=== PATIENT | female | born 1940 | race Caucasian/White ===

== ENCOUNTER 2018-07-15 17:34 | Inpatient (IN) ==
[2018-07-15] MEDS ORDERED: ZOFRAN IV ONE (18:50)
[2018-07-15] MEDS ORDERED: DILAUDID IV ONE (18:51)
[2018-07-15] MEDS ORDERED: NS 1,000 ML IV ONE (18:51)
[2018-07-15 19:12] LABS: BASO# 0.01 X1000 (0.0-0.2); BASO% 0.1 % (0.0-0.8); EOS% 1.6 % (0.0-10.0); HEMOGLOBIN 9.1 g/dL (12.0-16.0); IMM GRAN# 0.05 X1000 (0.0-0.04); IMM GRAN% 0.4 % (0.0-0.5); LYMPH# 0.93 X1000 (1.2-3.4); LYMPH% 7.3 % (20.5-51.1); MCH 28.9 PG (27-31); MCHC 32.5 g/dL (33-37); MCV 88.9 FL (81-99); MONO# 0.89 X1000 (0.11-0.59); MPV 11.8 FL (7.4-10.4); NEUT# 10.66 X1000 (1.4-6.5); NEUT% 83.6 % (42.2-75.2); PLT 195 X1000 (130-400); RBC 3.15 XMIL (4.2-5.4); RDW 12.6 % (11.5-14.5); WBC 12.74 X1000 (4.8-10.8)
[2018-07-15 19:36] LABS: AGAP 11; ALB/GLOB RATIO 1.6; ALBUMIN 3.6 g/dL (3.5-5.0); ALKALINE PHOSPHATASE 168 U/L (32-104); BUN 15 mg/dL (8-22); CALCIUM 9.1 mg/dL (8.8-10.2); CHLORIDE 93 mmol/L (98-107); COSMO 261; CREATININE 0.7 mg/dL (0.5-0.9); ESTIMATED GFR > 60; GLUCOSE 94 mg/dL (70-104); GOT 137 U/L (10-30); GPT 113 U/L (10-36); POTASSIUM 4.1 mmol/L (3.5-5.1); SODIUM 130 mmol/L (136-145); TCO2 26 mmol/L (25-35); TOTAL BILIRUBIN 0.78 mg/dL (0.20-1.00); TOTAL PROTEIN 5.9 g/dL (6.3-8.3)
--- NOTE | 2018-07-15 20:31 | Diag Imaging Result Doc PS360 ---
CT ANGIOGRM PULMONARY ARTERIES - 07/15/2018 INDICATION: recent ortho surgery, now sob and tachy, r/o PE TECHNIQUE: Axial CT images were obtained after administering intravenous contrast. Coronal MIP images were generated. COMPARISON: None FINDINGS: There are a couple of segmental pulmonary emboli in the right middle and lower lobe arteries. Heart and great vessels are normal. No adenopathy. There is a rather large hiatal hernia. Upper abdominal images are unremarkable. There are trace bilateral pleural effusions. There is an azygos lobe. There is some hazy nonspecific infiltrate or edema mainly throughout the left lung. There are moderate degenerative changes of the spine. No acute or suspicious bony lesion. IMPRESSION: 1. A few scattered segmental pulmonary emboli on the right side. 2. Hazy infiltrate or edema throughout the left lung. 3. Trace bilateral pleural effusions. 4. This report was discussed with Dr. Lock on 07/15/2018 at 8:25 PM and was readback. This exam was performed using automated exposure control, adjustment of mA or kV according to patient size, and/or use of iterative reconstruction technique Electronically signed by Ranjeet Cabrales 07/15/2018 8:28 PM
--- NOTE | 2018-07-15 20:33 | Diag Imaging Result Doc PS360 ---
CHEST-1 VIEW - 07/15/2018 INDICATION: sob COMPARISON: 04/29/2017 FINDINGS: There is some minimal infiltrate throughout the left lung. The right lung is fairly clear. The trace pleural effusions are not visible on this frontal x-ray. IMPRESSION: Minimal diffuse infiltrate throughout the left lung, nonspecific. May represent edema or pneumonia. Electronically signed by Ranjeet Cabrales 07/15/2018 8:31 PM
[2018-07-15 21:10] LABS: URINE SOURCE CLEAN CATCH
[2018-07-15 21:21] LABS: BILIRUBIN URINE NEGATIVE (NEGATIVE); BLOOD URINE TRACE (NEGATIVE); COLOR YELLOW; GLUCOSE URINE NEGATIVE (NEGATIVE); KETONE URINE NEGATIVE (NEGATIVE); LEUKOCYTES URINE NEGATIVE (NEGATIVE); NITRITE URINE NEGATIVE (NEGATIVE); PH URINE 6.5; PROTEIN URINE NEGATIVE (NEGATIVE); SP GRAVITY URINE 1.018; TURBIDITY URINE CLEAR (CLEAR); UROBILINOGEN URINE NORMAL (NORMAL)
[2018-07-15 21:22] LABS: UR EPITHELIAL CELLS <10 /HPF (<10); URINE BACTERIA NEGATIVE /HPF; URINE RBC <10 /HPF (<10); URINE WBC <10 /HPF (<10)
[2018-07-15] MEDS ORDERED: ZOFRAN IV PRN (22:16)
[2018-07-15] MEDS: LOVENOX SUBQ SCH (22:16)
[2018-07-15] MEDS ORDERED: VANCOMYCIN IV PER PHARMACY MISC SCH (22:16)
[2018-07-15] MEDS ORDERED: VANCOMYCIN 1,400 MG in NS 250 ML IV ONE (23:00)
--- NOTE | 2018-07-15 23:19 | HISTORY AND PHYSICAL ---
PRIMARY CARE PHYSICIAN: Robert Terrell MD CHIEF COMPLAINT: Cough, wheezing, shortness of breath. HISTORY OF PRESENT ILLNESS: This is a 77-year-old female with past medical history of fibromyalgia and osteoarthritis. She underwent a recent right knee replacement last Thursday, 07/12, and she was discharged overnight. Since then, she reports that pain in the right knee was getting worse. Also she reports some cough with brown sputum, wheezing and mild shortness of breath that started right after she was discharged. She reports also subjective fever at home. No chest pain. Upon ER evaluation here, we found elevation of white cell count, with elevated liver function tests. A CT angiogram of the chest showed a few scattered segmental pulmonary emboli in the right side, and also some infiltrates suspected for pneumonia, so the patient is going to be admitted for further evaluation and treatment. PAST MEDICAL HISTORY: 1. Fibromyalgia. 2. Osteoarthritis. PAST SURGICAL HISTORY: 1. Lower colon resection performed by Dr. Matt Kessler in 05/2018 for colon stricture. 2. Recent right knee replacement, performed by Dr. Bhandari on 07/12/2018. 3. Cholecystectomy. 4. Hysterectomy. 5. Cataract removed. 6. Tonsillectomy. ALLERGIES: No known drug allergies. SOCIAL HISTORY: She has never smoked. She does not drink alcohol or use illicit drugs. She lives with her . FAMILY HISTORY: Noncontributory. REVIEW OF SYSTEMS: Eleven systems were reviewed, and all symptoms are related to H and P. PHYSICAL EXAMINATION: VITAL SIGNS: Temperature 98.6 degrees, heart rate 121, respiratory rate 22, blood pressure 127/84, O2 saturation 96% on 2 L nasal cannula. GENERAL: This is a 77-year-old female lying in bed, in no acute distress. HEENT: Head is normocephalic, atraumatic. Pupils equal, round and reactive to light and accommodation. Anicteric sclerae. Normal conjunctivae. NECK: No JVD noted. No carotid bruits. No lymphadenopathy. No thyromegaly. CARDIOVASCULAR: S1, S2 heard. Tachycardic. No murmurs, gallops or rubs. Regular rhythm. RESPIRATORY: Some coarse breath sounds and expiratory wheezing noted in both pulmonary bases. Patient not using any accessory muscles or having work of breathing. ABDOMEN: Soft, nontender to palpation. Bowel sounds present. No organomegaly. EXTREMITIES: Right knee with mild swelling and also recent surgical scar. There is also some red discoloration on the right lower extremity as well. Peripheral pulses present in both legs. NEUROLOGIC: The patient is alert and oriented x3. Moves all 4 extremities. LABORATORY DATA: White cell count 12.74, hemoglobin 9.1, hematocrit 28.0, platelets 195,000. Sodium 130, AST 137, ALT 113, alkaline phosphatase 168. DIAGNOSTIC DATA: Pulmonary arteriogram showed a few scattered segmental pulmonary emboli on the right side; hazy infiltrate or edema throughout the left lung; trace bilateral pleural effusion. ASSESSMENT: 1. Pulmonary embolism. 2. Healthcare-associated pneumonia. 3. Recent right knee replacement. 4. Transaminitis. PLAN: 1. For this pulmonary embolism, we will start Lovenox 1 mg/kg every 12 hours. We are going to monitor this patient closely. The patient is tachycardic. There are some hazy infiltrates in the CT of the chest that may indicate either edema or pneumonia. Considering her symptoms of cough, fever and wheezing that she has not had on admission on 07/12 for her surgery, I prefer to go ahead and treat her like a healthcare-associated pneumonia. We will start vancomycin and cefepime, and we will monitor white cell count that is mildly elevated. 2. For this recent right knee replacement, I am aware of the risk of bleeding but I prefer to go ahead and treat this pulmonary embolism with anticoagulation. We will consult Orthopedics inbound sales consultant we will follow recommendations. 3. For this transaminitis, it is apparently new for her. I am going to trend hepatic panel. We will check hepatitis panel. We will do an abdominal ultrasound and will go from there. 4. For fibromyalgia we will continue with pain medications, although the patient does not report any pain at this time. Further recommendations to follow according to clinical situation of the patient. cc: Phoenix Molina MD
[2018-07-16] MEDS: NS 1,000 ML IV SCH ×2 (01:00→11:18)
[2018-07-16] MEDS: MAXIPIME 1 GM in NS 50 ML IV SCH ×3 (01:50→20:23)
[2018-07-16] MEDS: OXY IR PO PRN ×5 (02:08→23:04)
[2018-07-16] MEDS: DESYREL PO SCH ×2 (02:33→20:21)
[2018-07-16] MEDS: DUONEB (A & A) INH PRN ×3 (04:03→11:45)
[2018-07-16] MEDS: PRILOSEC PO SCH (07:00)
--- NOTE | 2018-07-16 07:09 | EKG Report ---
Test Performed on : 07/15/2018 5:51:00 PM Test Reason : TACHYCARDIA Blood Pressure : / mmHG Vent. Rate : 159 BPM Atrial Rate : 318 BPM P-R Int : 000 ms QRS Dur : 066 ms QT Int : 214 ms P-R-T Axes : 253 -04 151 degrees QTc Int : 348 ms Atrial flutter. with 2:[address]. [address] abnormality, possible inferolateral subendocardial injury Abnormal ECG When compared with ECG of 07-JUL-2018 08:07, Atrial flutter. has replaced Sinus rhythm. Vent. rate has increased BY [address] now depressed in Inferior leads ST now depressed in Anterolateral leads T wave amplitude has decreased in Inferior leads Inverted T waves have replaced nonspecific T wave abnormality in Lateral leads Unconfirmed Result
[2018-07-16 07:26] LABS: ALB/GLOB RATIO 1.3; DIRECT BILIRUBIN 0.2 mg/dL (0.00-0.20); TOTAL BILIRUBIN 0.68 mg/dL (0.20-1.00); TOTAL PROTEIN 5.4 g/dL (6.3-8.3)
[2018-07-16 07:41] LABS: BASO# 0.01 X1000 (0.0-0.2); BASO% 0.1 % (0.0-0.8); EOS# 0.21 X1000 (0.0-0.7); EOS% 2.1 % (0.0-10.0); HEMATOCRIT 23.4 % (37.0-47.0); HEMOGLOBIN 7.4 g/dL (12.0-16.0); IMM GRAN# 0.02 X1000 (0.0-0.04); IMM GRAN% 0.2 % (0.0-0.5); LYMPH# 0.93 X1000 (1.2-3.4); LYMPH% 9.2 % (20.5-51.1); MCH 28.9 PG (27-31); MCHC 31.6 g/dL (33-37); MCV 91.4 FL (81-99); MONO# 0.82 X1000 (0.11-0.59); MONO% 8.1 % (1.7-9.3); MPV 11.9 FL (7.4-10.4); NEUT# 8.14 X1000 (1.4-6.5); NEUT% 80.3 % (42.2-75.2); PLT 180 X1000 (130-400); RBC 2.56 XMIL (4.2-5.4); RDW 12.9 % (11.5-14.5); WBC 10.13 X1000 (4.8-10.8)
[2018-07-16 07:56] LABS: AGAP 8; BUN 11 mg/dL (8-22); CALCIUM 8.3 mg/dL (8.8-10.2); CHLORIDE 100 mmol/L (98-107); COSMO 267; CREATININE 0.7 mg/dL (0.5-0.9); ESTIMATED GFR > 60; GLUCOSE 94 mg/dL (70-104); SODIUM 134 mmol/L (136-145); TCO2 26 mmol/L (25-35)
--- NOTE | 2018-07-16 07:59 | Diag Imaging Result Doc PS360 ---
EXAM: US ABDOMEN-COMPLETE - 07/16/2018 HISTORY: transaminitis TECHNIQUE: Ultrasound abdomen COMPARISON: None. FINDINGS: The gallbladder surgically absent. The common bile duct is distended at 1.2 cm, which can be seen with postcholecystectomy state. There is no stone identified within the visualized portion of the common bile, although part of the duct is obscured by bowel gas artifacts. Visualized portions of the pancreas are unremarkable. There are artifacts over the liver which mildly limit detail. There is no discrete liver abnormality identified. Doppler image shows hepatopedal flow in the portal vein. The spleen is unremarkable. There is no ascites seen. There are no abnormalities of the bilateral kidneys identified. Abdominal aorta and IVC appear normal caliber. IMPRESSION: Status post cholecystectomy. Distended common bile duct at 1.2 cm, which can be seen with postcholecystectomy state. No other visible abnormality. Electronically signed by Arya Beach 07/16/2018 7:57 AM
[2018-07-16] MEDS: LOVENOX SUBQ SCH ×3 (10:16→22:04)
[2018-07-16 17:54] LABS: HEMATOCRIT 23.9 % (37.0-47.0); HEMOGLOBIN 7.6 g/dL (12.0-16.0)
--- NOTE | 2018-07-16 19:16 | CONSULTATION ---
DATE OF CONSULTATION: 07/16/2018 REASON FOR CONSULTATION: Recent right total knee replacement. HISTORY OF PRESENT ILLNESS: This is a 77-year-old female with a past medical history of fibromyalgia and osteoarthritis. She recently underwent a right total knee arthroplasty on July [address] Bhandari. She did well through the evening and was discharged the following day. Apparently the last couple of days the pain started increasing. She also complained of some shortness of breath. She felt like she was starting to get a fever. She denied any chest pain. Apparently, she decided she needed to go to the ER for further workup. She came to [facility] Emergency room where they found an elevated white count. They did do a CT angiogram of the chest on arrival and found some scattered pulmonary emboli. There was also some evidence of possible pneumonia, so she was admitted to the hospital for treatment of the pulmonary emboli as well as pneumonia. PAST MEDICAL HISTORY: 1. Fibromyalgia. 2. Osteoarthritis. PAST SURGICAL HISTORY: 1. Recent right knee replacement by Dr. Bhandari on 07/12/2018. 2. Lower colon resection in May. 3. Cholecystectomy. 4. Hysterectomy. 5. Cataracts. 6. Tonsillectomy. ALLERGIES: No known drug allergies. SOCIAL HISTORY: She denies tobacco, alcohol, or illicit drug use. She lives with her . FAMILY HISTORY: Noncontributory. REVIEW OF SYSTEMS: A 10 point review of systems was conducted and negative except what is mentioned in HPI. PHYSICAL EXAMINATION: Current Vital Signs: Temperature is 99.1 degrees, pulse 113, respirations 18, blood pressure 108/96, she is 96% on room air. General: This is a frail-appearing 77-year- old female with some shortness of breath. HEENT: Head is atraumatic, normocephalic. Pupils are equal, round, reactive to light. CV: She is a little bit tachycardic. Regular rhythm. Respirations: Her breathing is a little bit labored at the present. Abdomen: Appears nondistended. Extremities: She does have some tenderness to palpation to the right knee. There is a little swelling but no fluctuance. Her surgical incision looks great. There is no erythema or drainage. It is well approximated. She does have some discoloration and ecchymosis to the right lower extremity. She does have a 2+ pedal pulse that is noted. She has good sensation to the lower extremity. She does have pain with passive range of motion. Neurologic: She is alert and oriented x3 with no focal deficits. DIAGNOSTIC DATA: A CT angiogram did show few scattered segmental pulmonary emboli on the right side. There was also some infiltrates on the left side. There is a venous Doppler of the lower extremities that is pending. ASSESSMENT: Pulmonary embolism status post right total knee arthroplasty. PLAN: The medical team has started her on Lovenox 1 mcg per kg every 12 hours. They are also going to treat her for her possible hospital-acquired pneumonia. As far as the knee she can continue to be weightbearing as tolerated. We will have physical therapy come work with her. We will keep an eye on the knee just to make sure she does not develop a hematoma while she is on the anticoagulation for her pulmonary embolus. The knee looks good today. She does have some lower extremity swelling. There is a venous Doppler pending. Will just keep an eye on the incision and the knee and continue to rehab her as tolerated with all of her current medical conditions. We will continue to follow her while she is in the hospital. Dictated by HONEY Reyes for Jacobo Bhandari MD cc: HONEY Reyes MD
--- NOTE | 2018-07-16 22:21 | ECHO REPORT ---
ORDER DATE: 07/16/2018 MEASUREMENTS: Septal thickness 0.9. Left ventricular internal diameter in diastole 4.3. Posterior wall thickness 0.9. Left ventricular internal diameter in systole 2.5. Aortic root 2.9. Left atrium 3.5. SUMMARY: 1. Technically difficult study due to limited acoustic window quality. 2. Aortic valve is trileaflet and opens normally on 2-dimensional images. Peak gradient across aortic valve is 10-15 mmHg. Mitral and tricuspid valves are without evidence of structural abnormality while pulmonic valve is not well demonstrated. There is trace mitral regurgitation and mild tricuspid regurgitation. Estimated systolic PA pressure by Doppler is 55 mmHg, suggesting moderate pulmonary hypertension. Aortic root is normal in size. 3. Normal left ventricular dimensions demonstrated. Estimated left ejection fraction appears to be at least 70%. No regional wall motion abnormalities evident. Left atrium, right atrium, right ventricle are normal size with grossly preserved right ventricular systolic function. 4. No pericardial effusion. 5. Appearance of inferior vena cava suggests normal central venous pressure. cc: MD Phoenix Castillo MD
[2018-07-17] MEDS ORDERED: VANCOMYCIN IV PER PHARMACY MISC SCH
[2018-07-17] MEDS: MAXIPIME 1 GM in NS 50 ML IV SCH ×3 (00:51→22:21)
[2018-07-17] MEDS: OXY IR PO PRN ×7 (01:45→22:20)
[2018-07-17] MEDS: NS 1,000 ML IV SCH ×2 (01:46→12:45)
[2018-07-17] MEDS: PRILOSEC PO SCH (06:44)
[2018-07-17 07:50] LABS: ALB/GLOB RATIO 1.1; ALBUMIN 2.7 g/dL (3.5-5.0); DIRECT BILIRUBIN 0.2 mg/dL (0.00-0.20); TOTAL BILIRUBIN 0.63 mg/dL (0.20-1.00); TOTAL PROTEIN 5.1 g/dL (6.3-8.3)
[2018-07-17] MEDS: DUONEB (A & A) INH PRN (08:45)
[2018-07-17 09:07] LABS: BASO# 0.01 X1000 (0.0-0.2); BASO% 0.1 % (0.0-0.8); EOS# 0.19 X1000 (0.0-0.7); EOS% 2.8 % (0.0-10.0); HEMATOCRIT 21.9 % (37.0-47.0); HEMOGLOBIN 6.9 g/dL (12.0-16.0); IMM GRAN# 0.03 X1000 (0.0-0.04); IMM GRAN% 0.4 % (0.0-0.5); LYMPH# 1.05 X1000 (1.2-3.4); LYMPH% 15.6 % (20.5-51.1); MCH 29.1 PG (27-31); MCHC 31.5 g/dL (33-37); MCV 92.4 FL (81-99); MONO# 0.65 X1000 (0.11-0.59); MONO% 9.7 % (1.7-9.3); MPV 11.3 FL (7.4-10.4); NEUT% 71.4 % (42.2-75.2); PLT 171 X1000 (130-400); RBC 2.37 XMIL (4.2-5.4); RDW 13.3 % (11.5-14.5); WBC 6.73 X1000 (4.8-10.8)
[2018-07-17 09:19] LABS: AGAP 9; BUN 7 mg/dL (8-22); CALCIUM 7.9 mg/dL (8.8-10.2); CHLORIDE 103 mmol/L (98-107); COSMO 277; CREATININE 0.6 mg/dL (0.5-0.9); ESTIMATED GFR > 60; GLUCOSE 86 mg/dL (70-104); POTASSIUM 3.6 mmol/L (3.5-5.1); SODIUM 140 mmol/L (136-145); TCO2 28 mmol/L (25-35)
[2018-07-17] MEDS: LOVENOX SUBQ SCH (09:34)
[2018-07-17] MEDS: LYRICA PO SCH ×2 (09:41→22:20)
[2018-07-17] MEDS: COLACE PO SCH ×2 (09:41→22:20)
--- NOTE | 2018-07-17 10:20 | PROGRESS NOTE ---
DATE: 07/17/2018 SUBJECTIVE: Neyda Aparicio is a 77-year-old female who is postoperative day 5 of a total knee arthroplasty, who was readmitted after developing a pulmonary embolus. She has no complaints today. OBJECTIVE: Her wound is clean, dry, intact. She has no calf tenderness. Her leg is neurovascularly intact. She has good range of motion of her knee. Her hemoglobin is 6.9. Her hematocrit is 21.9. ASSESSMENT: Stable right total knee arthroplasty with pulmonary embolus and acute blood loss anemia. PLAN: She is receiving transfusion by the hospitalist. I agree with this plan. She is to continue working with physical therapy. cc: Jacobo Bhandari MD
[2018-07-17] MEDS ORDERED: VANCOMYCIN 1,100 MG in NS 250 ML IV SCH (11:00)
[2018-07-17 12:19] LABS: HEPATITIS PROFILE ACUTE SEE COMMENTS
--- NOTE | 2018-07-17 13:33 | PROGRESS NOTE ---
DATE: 07/17/2018 SUBJECTIVE: No acute events overnight. Since her right lower extremity was edematous, a little bit cold and I could not find the pulse on my physical exam, I ordered an arterial ultrasound that basically is normal. I will stop the Lovenox twice a day and I will put this patient on Eliquis. Since this patient has a pulmonary embolism, I will start Eliquis 10 mg twice a day for 7 days and then I will switch it to 5 mg twice a day. OBJECTIVE: Vital Signs: Temperature 98.8 degrees, pulse 84, respiratory rate 20, blood pressure 134/47, oxygen saturation 98 on room air. HEENT: Head normocephalic, no trauma. PERRLA. Neck: Supple. No JVD. No masses. Central trachea. Chest: Clear to auscultation. Some crepitus, mostly on the right side. Abdomen: Soft, nontender, nondistended. No hepatosplenomegaly. Extremities: Right lower extremity edema 2+ with bluish coloration due to previous knee surgery. It is a bit cold compared with the left lower extremity, but she is able to move her toes without problem, Her right knee also has a wound that looks clean, dry, and intact. Neurological examination: The patient is alert and oriented x3. No focal deficits. LABORATORY: WBC 6.7, hemoglobin 6.9, hematocrit 21.9, platelets 171. Sodium 140, potassium 3.6, chloride 103, bicarbonate 28. BUN 7, creatinine 0.6, glucose 86, calcium 7.9. AST 35, ALT 53, alkaline phosphatase 125, albumin 2.7. ASSESSMENT AND PLAN: 1. Pulmonary embolism, right side. This patient was placed on Lovenox twice a day 1 mg/kg, and now I have switched to Eliquis twice a day starting this night. Echocardiogram did not show any acute problem. We will continue with the same management. 2. Possible healthcare-associated pneumonia. This patient has been started on antibiotics. We have a positive blood culture 1/2 that showed gram-positive cocci, so we will continue with the vancomycin. 3. Gram-positive culture that showed 1/2 gram-positive cocci. Continue with vancomycin. No fever, no chills. 4. Recent right knee replacement. Orthopedic Surgery Department already evaluated this patient. We will monitor. 5. Transaminitis. This is getting better. Ultrasound did not show any acute abnormality. I think we will just monitor pending hepatitis panel. 6. Fibromyalgia. Continue with the same pain medication. cc: August Baptiste MD
[2018-07-17] MEDS: DESYREL PO SCH (22:20)
[2018-07-17] MEDS: ELIQUIS PO SCH (22:20)
[2018-07-17] MEDS: MIRALAX PO SCH (22:21)
[2018-07-18] MEDS: PRILOSEC PO SCH (06:42)
[2018-07-18] MEDS: NS 1,000 ML IV SCH ×2 (06:44→21:15)
[2018-07-18 06:52] LABS: BASO# 0.01 X1000 (0.0-0.2); BASO% 0.2 % (0.0-0.8); EOS# 0.28 X1000 (0.0-0.7); HEMATOCRIT 28.8 % (37.0-47.0); HEMOGLOBIN 9.1 g/dL (12.0-16.0); IMM GRAN# 0.08 X1000 (0.0-0.04); IMM GRAN% 1.4 % (0.0-0.5); LYMPH# 1.23 X1000 (1.2-3.4); LYMPH% 21.9 % (20.5-51.1); MCH 29.4 PG (27-31); MCHC 31.6 g/dL (33-37); MCV 92.9 FL (81-99); MONO# 0.66 X1000 (0.11-0.59); MONO% 11.7 % (1.7-9.3); MPV 10.5 FL (7.4-10.4); NEUT# 3.36 X1000 (1.4-6.5); NEUT% 59.8 % (42.2-75.2); PLT 215 X1000 (130-400); RDW 13.4 % (11.5-14.5); WBC 5.62 X1000 (4.8-10.8)
[2018-07-18 06:59] LABS: AGAP 7; BUN 4 mg/dL (8-22); CALCIUM 8.3 mg/dL (8.8-10.2); CHLORIDE 109 mmol/L (98-107); COSMO 282; CREATININE 0.7 mg/dL (0.5-0.9); ESTIMATED GFR > 60; GLUCOSE 92 mg/dL (70-104); POTASSIUM 3.6 mmol/L (3.5-5.1); SODIUM 143 mmol/L (136-145); TCO2 27 mmol/L (25-35)
[2018-07-18 07:53] LABS: ALB/GLOB RATIO 1.4; ALBUMIN 2.8 g/dL (3.5-5.0); DIRECT BILIRUBIN 0.2 mg/dL (0.00-0.20); TOTAL BILIRUBIN 0.71 mg/dL (0.20-1.00); TOTAL PROTEIN 4.8 g/dL (6.3-8.3)
--- NOTE | 2018-07-18 10:33 | PROGRESS NOTE ---
DATE: 07/18/2018 SUBJECTIVE: No acute events overnight. OBJECTIVE: Vital Signs: Temperature 97.7 degrees, pulse 87, respiratory rate 20, blood pressure 168/76, oxygen saturation 100% on room air. HEENT: Head normocephalic, atraumatic. PERRLA. Neck: Supple. No JVD. No masses. Central trachea. Chest: Clear to auscultation. Some crepitus, mostly at the right base. Abdomen: Soft, nontender, nondistended. No hepatosplenomegaly. Extremities: Right lower extremity edema 2+ with bluish coloration due to previous knee surgery, a little bit cold compared with the left lower extremity, but she is not complaining of pain and she is moving her toes without any kind of problem. Her right knee also has a wound that looks clean, dry, and intact. Neurological: The patient is alert and oriented x3. No focal deficits. LABORATORY: WBC 5.6, hemoglobin 9.1, hematocrit 28.8, platelets 215,000. Sodium 143, potassium 3.6, chloride 109, bicarbonate 27, BUN 4, creatinine 0.7, glucose 92, calcium 8.3, AST 25, ALT 41, alkaline phosphatase 130, albumin 2.8. ASSESSMENT AND PLAN: 1. Pulmonary embolism, right side, this patient has been placed initially on Lovenox twice a day, but now she is on Eliquis. Echocardiogram did not show any acute problem. We will continue with the same management. Hopefully, this patient can be discharged in the next 24 to 48 hours. 2. Possible healthcare-associated pneumonia, continue with antibiotics. 3. Gram-positive culture that showed 1 out of 2 coagulase-negative Staphylococcus, likely this is a contaminant. 4. Recent right knee replacement, Orthopedic Surgery is following this patient. I have restarted this patient on physical therapy. 5. Transaminitis. This is getting better. Ultrasound did not show any abnormality. We will monitor. 6. Fibromyalgia, continue with same treatment. cc: August Baptiste MD
[2018-07-18] MEDS: LYRICA PO SCH ×2 (10:42→21:15)
[2018-07-18] MEDS: MAXIPIME 1 GM in NS 50 ML IV SCH ×2 (10:42→21:15)
[2018-07-18] MEDS: ELIQUIS PO SCH ×2 (10:42→21:15)
[2018-07-18] MEDS: COLACE PO SCH ×2 (10:42→21:15)
[2018-07-18] MEDS: OXY IR PO PRN ×4 (10:55→21:15)
--- NOTE | 2018-07-18 11:28 | PROGRESS NOTE ---
DATE: 07/18/2018 SUBJECTIVE: Neyda Aparicio is a 77-year-old female with a right total knee with a PE. She has no complaints. OBJECTIVE: She is a well-developed, well-nourished female. She is alert, oriented, and cooperative with the exam. Her wound is clean, dry, intact. There is no sign of infection. There is no sign of hematoma. ASSESSMENT: Stable right total knee arthroplasty. PLAN: She is going to continue working with physical therapy. She will likely go home versus rehab the first part of the week. cc: Jacobo Bhandari MD
[2018-07-18] MEDS: DESYREL PO SCH (21:15)
[2018-07-18] MEDS: MIRALAX PO SCH (21:17)
[2018-07-19] MEDS: OXY IR PO PRN ×6 (00:28→21:32)
[2018-07-19 05:43] LABS: HEMOGLOBIN 8.7 g/dL (12.0-16.0)
[2018-07-19 06:08] LABS: AGAP 8; ALB/GLOB RATIO 1.1; ALBUMIN 2.7 g/dL (3.5-5.0); ALKALINE PHOSPHATASE 104 U/L (32-104); BUN 4 mg/dL (8-22); CALCIUM 8.1 mg/dL (8.8-10.2); CHLORIDE 106 mmol/L (98-107); COSMO 280; CREATININE 0.8 mg/dL (0.5-0.9); ESTIMATED GFR > 60; GLUCOSE 92 mg/dL (70-104); GOT 18 U/L (10-30); GPT 30 U/L (10-36); POTASSIUM 3.8 mmol/L (3.5-5.1); SODIUM 142 mmol/L (136-145); TCO2 28 mmol/L (25-35); TOTAL BILIRUBIN 0.65 mg/dL (0.20-1.00); TOTAL PROTEIN 5.1 g/dL (6.3-8.3)
[2018-07-19] MEDS: PRILOSEC PO SCH (06:12)
[2018-07-19] MEDS: DUONEB (A & A) INH PRN (07:45)
[2018-07-19] MEDS: LYRICA PO SCH ×2 (08:54→21:32)
[2018-07-19] MEDS: MAXIPIME 1 GM in NS 50 ML IV SCH ×3 (08:55→21:32)
[2018-07-19] MEDS: ELIQUIS PO SCH ×2 (08:55→21:32)
--- NOTE | 2018-07-19 13:38 | PROGRESS NOTE ---
DATE: 07/19/2018 SUBJECTIVE: No acute events overnight. OBJECTIVE: Vital Signs: Temperature 98.4 degrees, pulse 70, respiratory rate 16, blood pressure 140/55, and oxygen saturation 98 on room air. HEENT: Head normocephalic. No trauma. PERRLA. Neck: Supple. No JVD. No masses. Central trachea. Chest: Clear to auscultation. Some crepitus, mostly at the right base. Abdomen: Soft, nontender, and nondistended. No hepatosplenomegaly. Extremities: Right lower extremity edema 2+ with bluish coloration due to previous knee surgery. A little bit cold compared with the left lower extremity, but she is not complaining of pain at the level of the feet and toes. She does have pain at the level of the right knee. Her right knee wound looks clean, dry, and intact. Neurological: The patient is alert. She is oriented x3. No focal deficits. LABORATORY: Hemoglobin 8.7, hematocrit 28. Sodium 142, potassium 3.8, chloride 106, bicarbonate 28, BUN 4, creatinine 0.8, glucose 92, calcium 8.1, AST 18, ALT 30, alkaline phosphatase 104, and albumin 2.7. ASSESSMENT AND PLAN: 1. Pulmonary embolism, right side. This patient has been placed initially on Lovenox twice a day, but now she is on Eliquis. We will complete 7 days of Eliquis 10 mg twice a day, and then we switched it to 5 mg twice a day. She will need to follow up with her primary care doctor and/or we can set up an appointment with Hematology Department to follow this patient up as well. Hopefully, this patient can be discharged in the next 24 hours. I believe she is doing better, but she has severe weakness due to her recent surgery and now the pulmonary embolism so physical therapy is working on this patient. She will discuss with the if she will go home with physical therapy at home or if she will go to a rehab center. The social work msw has been notified, but I believe she can be discharged. 2. Possible healthcare associated pneumonia. Continue with antibiotics. 3. Gram-positive culture that showed 1/2 coagulase-negative Staphylococcus, likely this is a contamination. We have stopped the vancomycin. 4. Recent right knee replacement, orthopedic surgery following this patient. I have started this patient on physical therapy. 5. Transaminitis, resolved. 6. Fibromyalgia. Continue with same management. cc: August Baptiste MD
[2018-07-19] MEDS: COLACE PO SCH ×2 (14:12→21:31)
[2018-07-19] MEDS: NS 1,000 ML IV SCH (15:46)
[2018-07-19] MEDS: DESYREL PO SCH (21:32)
[2018-07-19] MEDS: MIRALAX PO SCH (21:33)
[2018-07-20 06:02] LABS: HEMATOCRIT 26.2 % (37.0-47.0); HEMOGLOBIN 8.2 g/dL (12.0-16.0)
[2018-07-20 06:17] LABS: AGAP 7; ALB/GLOB RATIO 1.3; ALBUMIN 2.8 g/dL (3.5-5.0); ALKALINE PHOSPHATASE 91 U/L (32-104); BUN 4 mg/dL (8-22); CALCIUM 8.2 mg/dL (8.8-10.2); CHLORIDE 109 mmol/L (98-107); COSMO 283; CREATININE 0.6 mg/dL (0.5-0.9); ESTIMATED GFR > 60; GLUCOSE 92 mg/dL (70-104); GOT 14 U/L (10-30); GPT 22 U/L (10-36); POTASSIUM 3.9 mmol/L (3.5-5.1); SODIUM 144 mmol/L (136-145); TCO2 28 mmol/L (25-35); TOTAL BILIRUBIN 0.66 mg/dL (0.20-1.00)
[2018-07-20] MEDS: PRILOSEC PO SCH (06:51)
[2018-07-20 07:11] VITALS: BP 103/81
[2018-07-20] MEDS: DUONEB (A & A) INH PRN (07:46)
[2018-07-20] MEDS: OXY IR PO PRN ×2 (07:57→10:56)
[2018-07-20] MEDS: COLACE PO SCH (08:00)
[2018-07-20] MEDS: LYRICA PO SCH (08:00)
[2018-07-20] MEDS: ELIQUIS PO SCH (08:00)
[2018-07-20] MEDS: MAXIPIME 1 GM in NS 50 ML IV SCH ×2 (08:01→12:09)
--- NOTE | 2018-07-20 08:20 | PROGRESS NOTE ---
DATE: 07/20/2018 SUBJECTIVE: Ms. Aparicio is a 77-year-old female who 8 days postoperative from a right total knee arthroplasty, who has been admitted for a PE. She has no new complaints and she is doing well. OBJECTIVE: General: She is well developed, well-nourished female. She is alert, oriented, and cooperative with the examination. She is in no acute distress. Vital Signs: Stable. She is afebrile. Extremities: Her right knee dressing is clean, dry, and intact. She has good range of motion of her right knee without pain. ASSESSMENT: Stable right total knee arthroplasty with a pulmonary embolism. PLAN: We will have her continue working with physical therapy. We will continue to manage her pain. When she is medically stable, she can be discharged either home or to rehab facility. Dictated by JOSE Seymour for Jacobo Bhandari MD cc: JOSE Seymour MD
--- NOTE | 2018-07-20 09:19 | Extremity Venous Study ---
PROCEDURE NAME: Venous U/S Bilateral Legs - 07/16/2018 REQUESTING PHYSICIAN: Dr. Rosenbaum. SPICE ROOM WORKER: Amy. INDICATIONS: 1. Recent right total knee. 2. Pulmonary embolism. EQUIPMENT: BlueRonin vivid E9 ultrasound system with a 9 L-D transducer. FINDINGS: Images of the bilateral lower extremity venous systems were obtained in both sagittal and transverse planes. Doppler was used to evaluate veins for spontaneity, phasicity, respiratory excursion, and digital augmentation. RESULTS: Normal venous compression. Normal venous flow. No obvious superficial or deep venous thrombosis noted. INTERPRETATION: Essentially normal bilateral lower extremity venous studies. cc: MD Phoenix Landon MD
--- NOTE | 2018-07-20 09:30 | VASCULAR LAB ---
PROCEDURE NAME: Arterial Bilateral Legs - 07/16/2018 LOWER EXTREMITY ARTERIAL STUDY: REQUESTING PHYSICIAN: August Baptiste MD GAS DISTRIBUTION AND EMERGENCY CLERK: Amy. INDICATIONS: 1. Discoloration of the right foot. 2. Status post right total knee. 3. Decreased pulse on physical exam. FINDINGS: Segmental pressures are as follows: Right brachial 159, left 161. Right proximal thigh not measured. Left not measured. Right distal thigh 163, left 196. Right popliteal 226, left 189. Right dorsalis pedis 158, left 174. Right posterior tibial 150, left 163. Right great toe not measured. Left great toe not measured. Right MAREN 0.98, left 1.08. WAVEFORM ANALYSIS: Waveforms appear to be intact to the level of the ankle and the level of the toes, although not measured with pressure. Does show significant blunting of the waveforms bilaterally, with the left being worse. INTERPRETATION: Perfusion noted to bilateral lower extremities to the level of the ankle. There is blunting noted bilaterally at the level of the toes, which represents likely distal peripheral small vessel disease. The patient may benefit from CT angiography if clinical suspicion still holds. cc: MD August Landon MD
--- NOTE | 2018-07-20 12:24 | DISCHARGE SUMMARY ---
ADMISSION DATE: 07/15/2018 DISCHARGE DATE: 07/20/2018 PRIMARY CARE PHYSICIAN: Robert Terrell MD ADMISSION DIAGNOSES: 1. Pulmonary emboli. 2. Healthcare-associated pneumonia. 3. Recent right knee replacement. 4. Transaminitis. DISCHARGE DIAGNOSES: 1. Pulmonary emboli. 2. Healthcare-associated pneumonia. 3. Status post right knee replacement, 9 days. 4. Transaminitis. SUMMARY OF FINDINGS: This is a 77-year-old female, who underwent a right knee replacement on 07/12/2018, was discharged home, and then began reporting pain in the right knee pain that was getting worse. Reported some cough with brown sputum, wheezing, and mild shortness of breath that started after she was discharged. We did a pulmonary arteriogram that showed a few scattered segmental pulmonary emboli on the right side, a hazy infiltrate or edema throughout the left lung, and some trace bilateral pleural effusions so she was admitted, started on vancomycin and cefepime for health-care associated pneumonia. We consulted Orthopedics and placed the patient initially on anticoagulation. We did do an abdominal ultrasound on 07/16/2018, that showed post cholecystectomy and distended common bile duct at 1.2 cm that can be seen with post cholecystectomy state, but no other visible abnormality. We did an arterial extremity study of bilateral legs with an interpretation of perfusion noted to bilateral lower extremities to the level of the ankle. There is blunting noted bilaterally at the level of the toes, which represents likely distal peripheral small-vessel disease. She was initially placed on Lovenox twice daily, but was converted over to Eliquis and will complete 7 days of Eliquis 10 mg twice a day and then switch to 5 mg twice a day. She is to follow up with her primary care physician and Hematology outpatient. She will follow up outpatient with Orthopedics also, and it is now felt that she can safely be discharged home. DISCHARGE MEDICATIONS: Eliquis 10 mg p.o. b.i.d., #20 with no refills. Colace 100 mg p.o. b.i.d. Oxycodone 5 mg q.3 h. p.r.n., #30 with no refills. MiraLAX 34 g p.o. at bedtime. Lyrica 75 mg p.o. b.i.d. Desyrel 50 mg p.o. b.i.d. A prescription for Eliquis 5 mg p.o. b.i.d., #60 with 1 refill. Cefdinir 300 mg p.o. b.i.d., #20 with no refills. Celebrex 200 mg p.o. b.i.d. Zantac 150 mg p.o. b.i.d. FOLLOW-UP: She has appointments with Dr. Gianni Bhandari, Orthopedics, on 08/10/2018 at 9:40 a.m. with rehabilitation access for her outpatient physical therapy on 07/21/2018 at 9 a.m., and she will need to call her primary care physician and schedule an appointment in the next 1 to 2 weeks. All discharge instructions have been reviewed with the patient, and she verbalized understanding. COORDINATION TIME: A 35-minute discharge. Dictated by HONEY Hernandez for Phoenix Molina MD Addendum: Patient seen and examined by myself. Agree with HONEY note. It reflects my assessment and plan. Patient is being discharged in stable condition. cc: MD Fernanda Milligan CRNP Cesar Garcia-Rodriguez, MD MTDD
--- NOTE | 2018-07-21 17:32 | PROVIDER DOCUMENTATION ---
This chart was entered by Megan Garcia Scribe, acting as scribe for Jose Tran MD. HPI-Rash/Wound/ReCheck - General Source: patient - History of Present Illness-Dermatology Location: reports: lower extremity (R knee) Quality: reports: painful Severity: reports: moderate Onset/Duration: reports: 3 days ago Timing: reports: still present Context/Associated Symptoms: reports: other (knee replacement surgery on Thursday) Identifiable cause?: Yes <Jose Tran - Last Filed: 07/15/18 21:27> <Robert Lock - Last Filed: 07/15/18 21:36> - General Chief Complaint: Post Op Complaint Stated Complaint: rt knee pain Time Seen by Provider: 07/15/18 18:51 Allergies/Adverse Reactions: Allergies Allergy/AdvReac Type Severity Reaction Status Date / Time No Known Allergies Allergy Verified 07/15/18 18:38 Home Medications: Home Medication List Medication Instructions Recorded Confirmed Last Taken Type Polyethylene Glycol 3350 [Miralax] 34 gm PO QHS 05/27/17 07/12/18 07/09/18 History Ranitidine HCl [Zantac] 150 mg PO DAILY 05/27/17 07/12/18 06/01/17 09:00 History Trazodone [Desyrel] 50 mg PO QHS 07/06/18 07/12/18 07/11/18 20:00 History Acetaminophen [Tylenol] 1,000 mg PO Q6H tab 07/13/18 Unknown Rx Aspirin 325 mg PO DAILY tab 07/13/18 Unknown Rx Celecoxib [Celebrex] 200 mg PO BID #60 cap 07/13/18 Unknown Rx Docusate Sodium [Colace] 100 mg PO BID cap 07/13/18 Unknown Rx Oxycodone I.r. [Oxy Ir] 5 mg PO Q3H PRN PRN #40 tab 07/13/18 Unknown Rx Pregabalin [Lyrica] 75 mg PO BID #60 cap 07/13/18 Unknown Rx Tramadol [Ultram] 100 mg PO Q6H #120 tab 07/13/18 Unknown Rx - History of Present Illness-Dermatology Nature of Presenting Problem: Pt is 77/F presenting to ED w/ post-op complaint. Sts that she had knee replacement of R knee on Thursday, she came home from the hospital yesterday and h as since had swelling of leg/knee, along w/ reports of wheezing and SOB. She sts today in hospital that she has no had any pain medication since surgery because she is a pain clinic pt and was told if she filled her rx from Dr. Bhandari, she would be dropped by pain clinic. (Jose Tran) Review of Systems - Adult - REVIEW OF SYSTEMS - ADULT Constitutional: denies: chills, fever Eyes: reports: no symptoms reported Ears, Nose, Mouth & Throat: reports: no symptoms reported Cardiovascular: reports: no symptoms reported. denies: chest pain, edema Respiratory: reports: shortness of breath, wheezing Gastrointestinal: denies: abdominal pain, nausea, vomiting Genitourinary: reports: no symptoms reported Musculoskeletal: reports: joint pain, joint swelling Integumentary: reports: no symptoms reported Neurological: reports: no symptoms reported. denies: dizziness/vertigo, head ache/migraines Psychiatric: reports: no symptoms reported Endocrine: reports: no symptoms reported Hematologic/Lymphatic: reports: no symptoms reported Allergic/Immunologic: reports: no symptoms reported All Other Systems: Reviewed and Negative <Jose Tran - Last Filed: 07/15/18 21:27> Past History - Adult - PAST MEDICAL HISTORY-ADULT Review of Records: reports: Old Records Reviewed, Nursing Assessment Review, Medications Reviewed, Social history reviewed & non-contributory. Major Childhood Illnesses: reports: denies history Cardiovascular: reports: denies history Respiratory: reports: denies history Gastrointestinal: reports: denies history Obstetrical/Gynecological: reports: denies history Genitourinary: reports: denies history Musculoskeletal: reports: denies history Neurological: reports: denies history Psychiatric: reports: denies history Endocrine/Immune: reports: denies history Other Conditions: reports: denies history - PRIOR SURGERIES/PROCEDURES Surgical/Procedure History: reports: cholecystectomy, hysterectomy - IMMUNIZATION STATUS Childhood Immunizations: See Nurse Assessment Flu Vaccine: See Nurse Assessment - FAMILY HISTORY Family History: reviewed, not pertinent - SOCIAL HISTORY Smoking: denies, non-smoker Alcohol Use Frequency: never Living Situation: family <Jose Tran - Last Filed: 07/15/18 21:27> Physical Exam-General - PHYSICAL EXAM-ADULT Initial Vital Signs Reviewed: Yes - CONSTITUTIONAL General Appearance: appears well, alert, mild distress - EYES Eyes: PERRL/EOMI, pink conjunctivae - HEAD, EARS, NOSE, MOUTH & THROAT HENMT: normocephalic/atraumatic, moist mucous membranes, normal ENT inspection, TMs normal, pharynx normal - NECK Neck: non-tender, full range of motion, supple, normal inspection - RESPIRATORY Respiratory: lungs clear - CARDIOVASCULAR Cardiovascular: tachycardia (121) - GASTROINTESTINAL (ABDOMEN) Abdominal Exam: normal bowel sounds, non tender, soft - LYMPHATIC Lymphatic: no adenopathy - MUSCULOSKELETAL Back Exam: normal inspection, no CVA tenderness, no vertebral tenderness Extremity: swelling (swelling from knee replacement on Thursday, appears to be healing well.), tenderness - SKIN Integumentary: normal color, warm/dry - NEUROLOGIC Neurologic: grossly normal - PSYCHIATRIC Psych/Mental Status: normal mood/affect, normal thought content, normal thought process, oriented x 3 <Jose Tran - Last Filed: 07/15/18 21:27> Progress - PLAN OF CARE/RESULTS Result Diagrams: 07/15/18 18:45 07/15/18 18:45 - EKG 1 Time of EKG reading by physician:: 17:51 EKG Read and Signed by:: Jose Tran EKG Interpretation (*Must complete 3 of following elements*): Abnormal (Atrial flutter w/ 2:[address] abnormality, possible infoerolateral subendocardial injury. Abnormal ECG) Rate: 159 Rhythm: Atrial Flutter [place]: normal QRS: normal - XRAY 1 XRAY: Bilateral XRAY Study: Chest Impression: Abnormal (IMPRESSION: Minimal diffuse infiltrate throughout the left lung, nonspecific. May represent edema or pneumonia. Electronically signed by Ranjeet Cabrales 07/15/2018 8:31 PM [id number]) - CT/MRI 1 CT Study: Angiogram Impression: Abnormal (IMPRESSION: 1. A few scattered segmental pulmonary emboli on the right side. 2. Hazy infiltrate or edema throughout the left lung. 3. Trace bilateral pleural effusions. 4. This report was discussed with Dr. Lock on 07/15/2018 at 8:25 PM and was readback. This exam was performed using automa forest exposure control, adjustment of mA or kV according to patient size, and/or use of iterative reconstruction technique Electronically signed by Ranjeet Cabrales 07/15/2018 8:28 PM) - CONSULTS/PCP/HOSPITALIST Notification #1 *Consult/PCP/Hospitalist*: Dr. Alvarez Time Discussed: 21:25 Reason/Comments: Orthopedic consult - CHANGE OF SHIFT REPORT (ED Provider) 1 Report Given and Care Transferred to:: Ashvin Time of Transfer: 19:01 Items Pending: Labs, CT/MRI Results, Pain Control <Jose Tran - Last Filed: 07/15/18 21:27> - PLAN OF CARE/RESULTS Result Diagrams: 07/15/18 18:45 07/15/18 18:45 <Robert Lock - Last Filed: 07/15/18 21:36> - PLAN OF CARE/RESULTS Progress/Plan/Lab Results: Vital Signs - 8 hr 07/15/18 17:39 07/15/18 18:34 07/15/18 18:35 Temperature 98.6 F Pulse Rate 121 H 157 H 165 H Respiratory Rate 22 Blood Pressure 127/84 120/99 O2 Sat by Pulse Oximetry 96 07/15/18 18:40 07/15/18 18:46 07/15/18 19:00 Temperature Pulse Rate 160 H 107 H 78 Respiratory Rate Blood Pressure 163/75 157/48 O2 Sat by Pulse Oximetry 97 100 98 07/15/18 19:36 07/15/18 19:40 07/15/18 20:20 Temperature Pulse Rate 100 H 107 H 104 H Respiratory Rate Blood Pressure 125/56 143/63 115/49 O2 Sat by Pulse Oximetry 100 95 96 07/15/18 20:30 07/15/18 20:41 07/15/18 20:51 Temperature Pulse Rate 101 H 95 H 90 Respiratory Rate Blood Pressure 121/50 107/59 115/58 O2 Sat by Pulse Oximetry 92 L 93 L 93 L Laboratory Results - last 24 hr 07/15/18 07/15/18 07/15/18 18:45 18:45 18:45 WBC 12.74 H RBC 3.15 L Hgb 9.1 L Hct 28.0 L MCV 88.9 MCH 28.9 MCHC 32.5 L RDW Std Deviation 12.6 Plt Count 195 MPV 11.8 H Immature Gran % (Auto) 0.4 Neut % (Auto) 83.6 H Lymph % (Auto) 7.3 L [place] % (Auto) 7.0 Eos % (Auto) 1.6 Baso % (Auto) 0.1 Immature Gran # (Auto) 0.05 H Neut # (Auto) 10.66 H Lymph # (Auto) 0.93 L [place] # (Auto) 0.89 H Eos # (Auto) 0.20 Baso # (Auto) 0.01 Sodium 130 L Potassium 4.1 Chloride 93 L Carbon Dioxide 26 Anion Gap 11 BUN 15 Creatinine 0.7 Estimated GFR/1.73 m2 > 60 BUN/Creatinine Ratio 21 Glucose 94 Calculated Osmolality 261 Calcium 9.1 Total Bilirubin 0.78 AST 137 H ALT 113 H Alkaline Phosphatase 168 H Troponin T < 0.010 Total Protein 5.9 L Albumin 3.6 Globulin 2.3 Albumin/Globulin Ratio 1.6 Plasma Lactate Urine Source Urine Color Urine Turbidity Urine pH Ur Specific [place] Urine Protein Ur Glucose (Stick) Ur Ketones (Stick) Urine Blood Urine Nitrite Urine Bilirubin Urobilinogen Dipstick Urine Leukocytes Urine WBC (Auto) Urine RBC (Auto) U Epithel Cells (Auto) Urine Bacteria (Auto) 07/15/18 07/15/18 19:02 21:08 WBC RBC Hgb Hct MCV MCH MCHC RDW Std Deviation Plt Count MPV Immature Gran % (Auto) Neut % (Auto) Lymph % (Auto) [place] % (Auto) Eos % (Auto) Baso % (Auto) Immature Gran # (Auto) Neut # (Auto) Lymph # (Auto) [place] # (Auto) Eos # (Auto) Baso # (Auto) Sodium Potassium Chloride Carbon Dioxide Anion Gap BUN Creatinine Estimated GFR/1.73 m2 BUN/Creatinine Ratio Glucose Calculated Osmolality Calcium Total Bilirubin AST ALT Alkaline Phosphatase Troponin T Total Protein Albumin Globulin Albumin/Globulin Ratio Plasma Lactate 2.8 H Urine Source CLEAN CATCH Urine Color YELLOW Urine Turbidity CLEAR Urine pH 6.5 Ur Specific [place] 1.018 Urine Protein NEGATIVE Ur Glucose (Stick) NEGATIVE Ur Ketones (Stick) NEGATIVE Urine Blood TRACE A Urine Nitrite NEGATIVE Urine Bilirubin NEGATIVE Urobilinogen Dipstick NORMAL Urine Leukocytes NEGATIVE Urine WBC (Auto) <10 Urine RBC (Auto) <10 U Epithel Cells (Auto) <10 Urine Bacteria (Auto) NEGATIVE Orders Category Date Time Status CTA [CT ANGIOGRM PULMONARY ARTERIES] [CT] Stat Exams 07/15/18 19:08 Completed cxr [CHEST-1 VIEW] [RAD] Stat Exams 07/15/18 18:52 Completed CBC WITH ELECTRONIC DIFF [HEME] Stat Lab 07/15/18 18:45 Completed COMPREHENSIVE METABOLIC PANEL [CHEM] Stat Lab 07/15/18 18:45 Completed LACTATE, PLASMA [CHEM] Stat Lab 07/15/18 19:02 Completed TROPONIN T Stat Lab 07/15/18 18:45 Completed URINALYSIS [URINALYSIS] Stat Lab 07/15/18 21:08 Completed 0.9% Sodium Chloride Inj [Ns] 1,000 ml Med 07/15/18 18:51 Discontinued IV 999 mls/hr Hydromorphone [Dilaudid] Med 07/15/18 18:51 Discontinued 1 mg IV NOW ONE Ondansetron [Zofran] Med 07/15/18 18:50 Discontinued 4 mg IV NOW ONE EKG [EKG] Stat Ther 07/15/18 17:49 Ordered Pt signed out to me by Dr. Tran, CT PE study shows several small subsegmental PEs on the right and possible PNA on the right, spoke to Dr. Alvarez covering for rasheed Sloan with anticoagulation at this time, will admit to hospitalist for abx and lovenox (Robert Lock) Departure <Jose Tran - Last Filed: 07/15/18 21:27> - Departure Date of Disposition Decision: 07/15/18 Time of Disposition Decision: 21:35 Certified Medical Emergency: Emergent - Critical Care Note This patient required my direct & personal management of CC.: No <Robert Lock - Last Filed: 07/15/18 21:36> - Departure DIAGNOSIS: Pneumonia Qualifiers: Pneumonia type: due to unspecified organism Laterality: left Lung location: lower lobe of lung Qualified Code(s): J18.1 - Lobar pneumonia, unspecified organism Pulmonary embolism Qualifiers: Pulmonary embolism type: unspecified Chronicity: acute Acute cor pulmonale presence: without acute cor pulmonale Qualified Code(s): I26.99 - Other p ulmonary embolism without acute cor pulmonale Disposition: ADMITTED INPATIENT 09 Condition: Stable Referrals and Follow-Ups: Robert Terrell MD [Primary Care Provider] - Attestation - Physician/ LUIS ALBERTO Attestation Patient care was provided by Advanced Practice Provider:: No The physician spent face to face time with patient:: Yes Advanced Practice Provider documentation review:: Supervising physician onsite and consulted in the evaluation and care of this patient. The physician did have a face to face encounter with the patient. <Jose Tran - Last Filed: 07/15/18 21:27> - Physician/ LUIS ALBERTO Attestation Patient care was provided by Advanced Practice Provider:: No The physician spent face to face time with patient:: Yes Advanced Practice Provider documentation review:: Supervising physician onsite and consulted in the evaluation and care of this patient. The physician did have a face to face encounter with the patient. <Robert Lock - Last Filed: 07/15/18 21:36> This chart was documented by the indicated scribe, (Megan Garcia, Scribjulianna) and accurately reflects the services I performed and decisions made by me, Jose Tran MD, as attested by the provider's signature.
== END 2018-07-20 12:08 | disposition home health service (06) | DRG 871 ==
LOC: ED 17:34 → SUATTDRO 17:35 → EDIPHOLD 07-16 02:09 → SUATTDRO 07-16 02:09 → 4N 07-16 12:17
PROVIDERS: ATTEND Internal Medicine
CPT/HCPCS: 36430; 71010; 71045; 71275; 76700; 80048; 80053; 80074; 80076; 81001; 83605; 84484; 85014; 85018; 85025; 86850; 86900; 86901; 86920; 87040; 87070; 87205; 93005; 93306; 93923; 93926; 93970; 94640; 94760; 94761; 96361; 96365; 96366; 96372; 96375; 97110; 97116; 97162; 97165; 97530; 97535; 99285; A9270; J0692; J1170; J1650; J2405; J3370; J7030; J7040; P9016; Q9967